=== PATIENT | female | born 1975 | race African-American/Black ===

== ENCOUNTER 2017-12-27 11:55 | Emergency (ER) | payer MEDICAID, OTHER ==
[~2017-12-27] VITALS: Ht 157.5 cm; Wt 77.0 kg
[~2017-12-27 11:55] MED LIST: OLAN7.5T3
[2017-12-27] MEDS ORDERED: LORAZEPAM 1MG TABLET PO ONE (13:00)
[2017-12-27] MEDS ORDERED: CLONIDINE 0.1MG TABLET PO ONE (13:00)
[2017-12-27 14:48] VITALS: BP 179/90
[2017-12-27 15:02] LABS: CHLORIDE 105 mEq/L (98-107)
== END 2017-12-27 14:52 | disposition home or self-care (01) ==
LOC: ER 14:48
DX: F20.9 Schizophrenia, unspecified (principal); I10 Essential (primary) hypertension
CPT/HCPCS: 36415; 80048; 81025; 99283

== ENCOUNTER 2018-11-07 12:36 | Emergency (ER) | payer OTHER ==
[~2018-11-07] VITALS: Ht 170.2 cm; Wt 67.0 kg
[2018-11-07] MEDS ORDERED: SODIUM CHLORIDE 0.9% 1,000 ML IV ONE (13:43)
[2018-11-07] MEDS ORDERED: CLONIDINE 0.2MG TABLET PO ONE (13:45)
[2018-11-07] MEDS ORDERED: ASPIRIN 81MG TABLET PO ONE (13:45)
[2018-11-07 14:06] LABS: CLARITY URINE CLEAR (CLEAR); COLOR URINE YELLOW (YELLOW); KETONES URINE NEGATIVE (NEGATIVE); LEUKOCYTE ESTERASE URINE NEGATIVE (NEGATIVE); NITRITE URINE NEGATIVE (NEGATIVE); OCCULT BLOOD URINE NEGATIVE (NEGATIVE); PH URINE 5.5 (4.5-8.0); PROTEIN URINE NEGATIVE (NEGATIVE); SPECIFIC GRAVITY URINE 1.008 (1.005-1.030); UROBILINOGEN URINE 0.2 E.U./dL (0.2-1.0)
[2018-11-07 14:19] LABS: *AMPHETAMINES SCREEN URINE NEGATIVE (NEGATIVE); *BARBITURATES SCREEN URINE NEGATIVE (NEGATIVE); *BENZODIAZEPINES SCREEN URINE NEGATIVE (NEGATIVE)
[2018-11-07 14:19] LABS: BASOPHILS % 0.8 % (0.0-2.0); HEMATOCRIT. 41.4 % (36.0-48.0); HEMOGLOBIN. 14.2 g/dL (12.0-16.0); LYMPHOCYTES % 11.9 % (20.0-50.0); MEAN CORPUSCULAR HEMOGLOBIN 27.7 pg (28.0-32.0); MEAN CORPUSCULAR VOLUME 80.6 fL (81.0-99.0); MEAN PLATELET VOLUME 8.1 fl (7.4-10.4); MONOCYTES % 5.3 % (2.0-8.0); PLATELET 326 x1000/uL (130-400); RED BLOOD CELL COUNT 5.14 mill/uL (4.2-5.4); RED CELL DISTRIBUTION WIDTH 14.7 % (11.6-14.6)
[2018-11-07 14:20] LABS: *COCAINE SCREEN URINE NEGATIVE (NEGATIVE); METHADONE URINE SCREEN NEGATIVE (NEGATIVE); OPIATES URINE SCREEN NEGATIVE (NEGATIVE); PHENCYCLIDINE URINE SCREEN NEGATIVE (NEGATIVE)
[2018-11-07 14:21] LABS: CANNABINOID URINE SCREEN NEGATIVE (NEGATIVE)
[2018-11-07 14:26] LABS: CHLORIDE 103 mEq/L (98-107)
[2018-11-07 14:28] LABS: PROTHROMBIN TIME 10.1 sec (9.6-11.0)
[2018-11-07 14:29] LABS: HCG SCREEN NEGATIVE
[2018-11-07 14:31] LABS: ETHANOL BLOOD < 10 mg/dL
[2018-11-07] MEDS ORDERED: POTASSIUM CHLORIDE 20MEQ TABLET SR PO ONE (16:30)
[2018-11-07 17:59] VITALS: BP 120/85
== END 2018-11-07 18:00 | disposition home or self-care (01) ==
LOC: ER 12:36
DX: I10 Essential (primary) hypertension (principal); R00.0 Tachycardia, unspecified; E87.6 Hypokalemia; F20.9 Schizophrenia, unspecified; Z79.899 Other long term (current) drug therapy
CPT/HCPCS: 36415; 71045; 80053; 80305; 80320; 81003; 83690; 83880; 84484; 84703; 85025; 85610; 85730; 93005; 99284; J7030; Z7610; G0480

== ENCOUNTER 2023-04-03 10:03 | Emergency (ER) | payer OTHER ==
[~2023-04-03] VITALS: Ht 157.5 cm; Wt 84.0 kg
[2023-04-03 10:09] VITALS: PULSE 103; RESP 18
[2023-04-03 10:13] VITALS: BP 190/119; TEMP 98.6; O2SAT 98
[2023-04-03] MEDS ORDERED: DEXT30SU17 MT (11:38)
== END 2023-04-03 12:03 | disposition home or self-care (01) ==
LOC: ER 10:03
DX: R05.9 Cough, unspecified (principal); I10 Essential (primary) hypertension; Z86.59 Personal history of other mental and behavioral disorders; Z98.890 Other specified postprocedural states
CPT/HCPCS: 71045; 99283